=== PATIENT | female | born 1990 | race Two or more races ===

== ENCOUNTER 2017-03-27 08:54 | Outpatient (CLI) | payer MEDICAID ==
[2017-03-27 09:47] LABS: APPEARANCE,URINE SLIGHTLY-CLOUDY; BILIRUBIN,URINE NEGATIVE (NEGATIVE); GLUCOSE, URINE NEGATIVE (NEGATIVE); KETONES,URINE NEGATIVE (NEGATIVE); LEUKOCYTE ESTERASE,URINE LARGE (NEGATIVE); NITRITE,URINE NEGATIVE (NEGATIVE); PROTEIN,URINE NEGATIVE (NEGATIVE); URINE SPECIFIC GRAVITY 1.008; UROBILINOGEN,URINE NEGATIVE mg/dL (<2.0)
[2017-03-27 10:19] LABS: URINE BARBITURATES SCREEN NEGATIVE
--- NOTE | 2017-03-27 10:24 | Non Stress Test Report ---
Non Stress Test Datetime Report Generated by CPN: 03/27/2017 10:24 DEMOGRAPHIC EGA NST: 34.6 INDICATION Indication for Study: Ordered by Provider MONITORING Monitor Explained: Monitor Explained; Test Explained; Patient Verbalized Understanding Time on Monitor: 03/27/2017 09:24 Time off Monitor: 03/27/2017 09:51 NST Duration: 27 NST INTERVENTIONS NST Interventions: PO Hydration; Reposition Patient Physician Notified NST: Dr Hyde BABY A: [id number] BABY A Movement : Present Contraction Frequency : 0 FHR Baseline : 125 Accelerations : 15X15 Decelerations : None Variability : Moderate 6-25bpm NST Review: Meets Criteria for Reactive NST NST Review and Verified By : Michelle Roberson RNC NST Results: Reactive NST REPORT Report Trigger: Send Report
[2017-03-27 11:29] LABS: URINE METHADONE SCREEN NEGATIVE; URINE OPIATES LOW NEGATIVE; URINE PHENCYCLIDINE SCREEN NEGATIVE
== END 2017-03-27 10:09 | disposition left against medical advice (07) ==
LOC: LC 08:54
PROVIDERS: ATTEND Student in an Organized Health Care Education/Training Program
PROC: 4A1HXCZ Monitoring of Products of Conception, Cardiac Rate, External Approach (ICD-10-PCS; principal; 2017-03-27)
DX: Z34.93 Encounter for supervision of normal pregnancy, unspecified, third trimester (principal); Z36 Encounter for antenatal screening of mother; Z3A.34 34 weeks gestation of pregnancy
CPT/HCPCS: 59025; 80307; 81001

== ENCOUNTER 2017-03-29 23:37 | Outpatient (CLI) | payer MEDICAID ==
[2017-03-30 01:01] LABS: APPEARANCE,URINE CLOUDY; BILIRUBIN,URINE NEGATIVE (NEGATIVE); GLUCOSE, URINE NEGATIVE (NEGATIVE); KETONES,URINE NEGATIVE (NEGATIVE); LEUKOCYTE ESTERASE,URINE LARGE (NEGATIVE); NITRITE,URINE NEGATIVE (NEGATIVE); PROTEIN,URINE 30 mg/dL (NEGATIVE); URINE SPECIFIC GRAVITY 1.025; UROBILINOGEN,URINE NEGATIVE mg/dL (<2.0)
[2017-03-30 02:06] LABS: URINE BARBITURATES SCREEN NEGATIVE; URINE METHADONE SCREEN NEGATIVE; URINE OPIATES LOW NEGATIVE; URINE PHENCYCLIDINE SCREEN NEGATIVE
== END 2017-03-30 01:45 | disposition home or self-care (01) ==
LOC: LC 23:37
PROVIDERS: ATTEND Obstetrics & Gynecology
PROC: 4A1HXCZ Monitoring of Products of Conception, Cardiac Rate, External Approach (ICD-10-PCS; principal; 2017-03-29)
DX: O47.03 False labor before 37 completed weeks of gestation, third trimester (principal); Z3A.35 35 weeks gestation of pregnancy
CPT/HCPCS: 59025; 80307; 81005

== ENCOUNTER 2017-04-22 19:06 | Inpatient (IN) | payer MEDICAID ==
--- NOTE | 2017-04-22 19:15 | Non Stress Test Report ---
Non Stress Test Datetime Report Generated by CPN: 04/22/2017 19:14 DEMOGRAPHIC Test Number: 1 EGA NST: 35.2 INDICATION Indication for Study: Ordered by Provider MONITORING Monitor Explained: Monitor Explained; Test Explained; Patient Verbalized Understanding Time on Monitor: 03/30/2017 01:00 Time off Monitor: 03/30/2017 01:35 NST Duration: 35 NST INTERVENTIONS NST Interventions: None Physician Notified NST: Dr Lugo BABY A: [id number] BABY A Movement : Present Contraction Frequency : irregular FHR Baseline : 135 Accelerations : 15X15 Decelerations : None Variability : Moderate 6-25bpm NST Review: Meets Criteria for Reactive NST NST Review and Verified By : B Ortega, RN NST Results: Reactive NST REPORT Report Trigger: Send Report
[2017-04-22 20:05] LABS: APPEARANCE,URINE SLIGHTLY-CLOUDY; BILIRUBIN,URINE NEGATIVE (NEGATIVE); GLUCOSE, URINE NEGATIVE (NEGATIVE); KETONES,URINE NEGATIVE (NEGATIVE); LEUKOCYTE ESTERASE,URINE NEGATIVE (NEGATIVE); NITRITE,URINE NEGATIVE (NEGATIVE); PROTEIN,URINE NEGATIVE (NEGATIVE); URINE SPECIFIC GRAVITY 1.019; UROBILINOGEN,URINE NEGATIVE mg/dL (<2.0)
[2017-04-22 20:26] LABS: URINE BARBITURATES SCREEN NEGATIVE; URINE METHADONE SCREEN NEGATIVE; URINE OPIATES LOW NEGATIVE; URINE PHENCYCLIDINE SCREEN NEGATIVE
[2017-04-22] MEDS ORDERED: RINGERS SOLUTION,LACTATED 1,000 ML IV PRN (21:08)
[2017-04-22] MEDS ORDERED: RINGERS SOLUTION,LACTATED 1,000 ML IV ONE (21:08)
[2017-04-22 21:23] LABS: ABSOLUTE EOSINOPHILS # (AUTO) 0.1 10^3/uL (0.0-0.6); ABSOLUTE LYMPHOCYTES (AUTO) 2.8 10^3/uL (0.5-4.7); ABSOLUTE MONOCYTES (AUTO) 0.9 10^3/uL (0.1-1.4); ABSOLUTE NEUT (AUTO) 7.4 10^3/uL (1.7-8.2); BASOPHILS % (AUTO) 0.3 % (0-2); EOSINOPHILS % (AUTO) 1.1 % (0-6); HEMATOCRIT 38.7 % (36.0-47.0); HEMOGLOBIN 12.9 g/dL (12.0-15.5); LYMPHOCYTES % (AUTO) 25.2 % (13-45); MEAN CORPUSCULAR HEMOGLOBIN 26.4 pg (27.0-33.4); MEAN CORPUSCULAR HGB CONC 33.4 g/dL (32.0-36.0); MEAN CORPUSCULAR VOLUME 79 fl (80-97); MONOCYTES % (AUTO) 7.9 % (3-13); RED BLOOD COUNT 4.88 10^6/uL (3.72-5.28); RED CELL DISTRIBUTION WIDTH 14.8 % (11.5-14.0); SEGMENTED NEUTROPHILS % (AUTO) 65.5 % (42-78); WHITE BLOOD COUNT 11.3 10^3/uL (4.0-10.5)
[2017-04-22] MEDS ORDERED: OXYTOCIN/NORMAL SALINE 20 UNIT/1,000 ML RTUINJ ONE (21:40)
[2017-04-22] MEDS ORDERED: MISOPROSTOL 0.2 MG TABLET ONE (21:40)
[2017-04-22] MEDS ORDERED: LIDOCAINE 1% INJ-PF (10 MG/ML) 30 ML SDV ONE (21:40)
[2017-04-22] MEDS ORDERED: ZOLPIDEM TARTRATE 5 MG TABLET PO PRN (21:59)
[2017-04-22] MEDS ORDERED: BENZOCAINE/MENTHOL AEROSOL SPRAY 56 ML TOP PRN (21:59)
[2017-04-22] MEDS ORDERED: ACETAMINOPHEN WITH CODEINE #3 TABLET PO PRN (21:59)
[2017-04-22] MEDS ORDERED: DIPH/PERTUSS(ACELL)/TETANUS VAC/PF 0.5 ML SYR (>=10YO) IM PRN (21:59)
[2017-04-22] MEDS ORDERED: OXYTOCIN/NORMAL SALINE 20 UNIT/1,000 ML RTUINJ IV PRN (21:59)
[2017-04-22] MEDS ORDERED: DIBUCAINE 1% OINTMENT 28 GM TP PRN (21:59)
[2017-04-22] MEDS ORDERED: MEASLES,MUMPS&RUBELLA VACC/PF 0.5 ML VIAL SUBCUT PRN (21:59)
--- NOTE | 2017-04-23 00:03 | Admission Physical ---
Datetime Report Generated by CPN: 04/23/2017 00:03 CURRENT ADMISSION Hx Assessment: The History has been Reviewed and is Current Chief Complaint: Uterine Contractions Admit Plan: Initiate Labor Protocol ALLERGIES Medication Allergies: Yes Medication Allergies: tramadol/ID (03/30/2017) Medication Allergies: tramadol/ID (03/27/2017) Medication Allergies: tramadol/ID (09/05/2016) Latex: No Latex Allergies OBSTETRICAL HISTORY EDC: 05/02/2017 00:00 : 2 Para: 1 Term: 1 : 0 SAB: 0 IAB: 0 Ectopic: 0 Livin Cesareans: 0 VBACs: 0 Multiple Births: 0 Gestational Diabetes: No Rh Sensitization: No Incompetent Cervix: No SOL: No Infertility: No ART Treatment: No Uterine Anomaly: No IUGR: No Hx Previous C/S: No Macrosomia: No Hx Loss/Stillborn: No PIH: No Hx : No Placenta Previa/Abruption: No Depression/PP Depression: No PTL/PROM: No Post Hemorrhage: No Obstetrical History Comments: G1 2004 baby boy 40 weeks G2 current SEE RECORDS Alcohol: No Marijuana : No Cocaine: No Other Illicit Drugs: No Cigarettes: Never Smoker. [id number] MEDICAL HISTORY Diabetes: No Blood Transfusion: No Pulmonary Disease (Asthma, TB): No Breast Disease: No Hypertension: No Hotel Operation Manager Surgery: No Heart Disease: No Hosp/Surgery: No Autoimmune Disorder: No Anesthetic Complications: No Kidney Disease: No Abnormal Pap Smear: No Neuro/Epilepsy: No Psychiatric Disorders: No Other Medical Diseases: No Hepatitis/Liver Disease: No Significant Family History: No Varicosities/Phlebitis: No Trauma/Violence : No Thyroid Dysfunction: No INFECTIOUS HISTORY Gonorrhea: No Genital Herpes: No Chlamydia: No Tuberculosis: No Syphilis: No Hepatitis: No HIV/AIDS Exposure: No Rash or Viral Illness: No HPV: No PHYSICAL EXAM General: Normal HEENT: Normal Neurologic: Normal Thyroid: Normal Heart: Normal Lungs: Normal Breast: Normal Back: Normal Abdomen: Normal Genitourinary Exam: Normal Extremities: Normal DTRs: Normal Pelvic Type: Adequate Physical Exam Comments: efw 9 pounds FETUS A EGA: 38.4 Monitoring: External US FHR Category: Category I Admit Comment: Term labor-admit, epidural per pt request, expectant management PLANS FOR LABOR AND DELIVERY Labor and Delivery: None Pain Management: None Feeding Preference: Breast Benefit of Breast Feed Discussed: Yes Circumcision: N/A INFORMED CONSENT Signature: with User ID: [email or web address]
[2017-04-23] MEDS: ACETAMINOPHEN WITH CODEINE #3 TABLET PO PRN ×3 (00:28→18:40)
[2017-04-23] MEDS: IBUPROFEN 800 MG TABLET PO SCH ×4 (00:47→21:23)
[2017-04-23 06:52] LABS: HEMATOCRIT 37.9 % (36.0-47.0); HEMOGLOBIN 12.5 g/dL (12.0-15.5); HGB HCT DIFFERENCE -0.4; MEAN CORPUSCULAR HEMOGLOBIN 26.4 pg (27.0-33.4); MEAN CORPUSCULAR VOLUME 80 fl (80-97); RED BLOOD COUNT 4.74 10^6/uL (3.72-5.28); RED CELL DISTRIBUTION WIDTH 15.2 % (11.5-14.0); WHITE BLOOD COUNT 15.3 10^3/uL (4.0-10.5)
[2017-04-23] MEDS: FERROUS SULFATE 325 MG TABLET PO SCH ×2 (08:11→18:40)
[2017-04-23] MEDS: SENNOSIDES/DOCUSATE 8.6-50 MG 1 EACH TABLET PO SCH (08:11)
[2017-04-23] MEDS: DOCUSATE SODIUM 100 MG CAPSULE PO SCH ×2 (08:11→18:40)
[2017-04-23] MEDS: PRENATAL VITAMIN W-O CA NO5/FE FUMARATE/FA CAPSULE PO SCH (08:12)
--- NOTE | 2017-04-23 10:14 | Delivery Summary ---
Del Sum A-C Datetime Report Generated by CPN: 04/23/2017 10:14 DELIVERY PERSONNEL DELIVERY PERSONNEL: [phone];[phone] DELIVERY PERSONNEL: [phone] DELIVERY PERSONNEL: [phone] Delivery Doctor:: Reema Costello MD Labor and Delivery Nurse:: Tricia Dorsey RN Labor and Delivery Nurse:: JOSIAS Hill/ELEVATOR ERECTOR: Liz Temple, ST MATERNAL INFORMATION Delivery Anesthesia: Local Medications After Delivery: Pitocin Bolus-Please Comment; Pitocin Drip 20 Units/1000ml NSS Estimated Blood Loss (ml): 200 Maternal Complications: Precipitous Labor (<3hrs) Provider Comments: Pt progressed to complete and pushing. Head delivered OP. Shoulders and body delivered easily. Cord clamped and cut. Placenta spont and intact. Female infant with apgars 9 and 9. Mom and baby doiong well. LABOR SUMMARY EDC: 05/02/2017 00:00 No. Babies in Womb: 1 Attempted: No Labor Anesthesia: None LABOR INFORMATION Reason for Induction: Not Applicable Onset of Labor: 04/22/2017 21:20 Complete Dilatation: 04/22/2017 21:37 Oxytocin: N/A Group B Beta Strep: Negative Antibiotics # of Doses: 0 Steroids Given: None Reason Steroids Not Administered: Not Applicable MEMBRANES Membranes Rupture Method: Spontaneous Membranes Rupture Method: Spontaneous Rupture of Membranes: 04/22/2017 21:20 Length of Rupture (hr): 0.43 Amniotic Fluid Color: Clear Amniotic Fluid Color: Clear Amniotic Fluid Amount: Small Amniotic Fluid Odor: Normal STAGES OF LABOR Stage 1 hr: 0 Stage 1 min: 17 Stage 2 hr: 0 Stage 2 min: 9 Stage 3 hr: 0 Stage 3 min: 4 Total Time in Labor hr: 0 Total Time in Labor min: 30 VAGINAL DELIVERY Laceration Extension: First Degree Laceration Type: Perineal Laceration Repair: Yes Laceration Repair Note: with sigle stitch of 2-0 chromic using 1 percent lidocaine for local anaesthesia. Sponge Count Correct: N/A Sharps Count Correct: Yes CSECTION DELIVERY Primary Indication: N/A Secondary Indication: N/A CSection Incidence: N/A Labor: N/A Elective: N/A CSection Incision: N/A BABY A INFORMATION Infant Delivery Date/Time: 04/22/2017 21:46 Method of Delivery: Vaginal Born in Route : No : N/A Forceps: N/A Forceps: N/A Vacuum Extraction: N/A Vacuum Extraction: N/A Shoulder Dystocia : No Shoulder Dystocia : No PRESENTATION/POSITION BABY A Presentation: Cephalic Presentation: Cephalic Cephalic Presentation: Vertex Vertex Position: Left Occipital Posterior Breech Presentation: N/A PLACENTA INFORMATION BABY A Placenta Delivery Time : 04/22/2017 21:50 Placenta Method of Delivery: Spontaneous Placenta Status: Delivered SCORES BABY A Heart Rate 1 min: >100 bpm Resp Effort 1 min: Good Cry Reflex Irritability 1 min: Cough or Sneeze or Pulls Away Muscle Tone 1 min: Active Motion Color 1 min: Body [place], Extremities Blue Resuscitation Effort 1 min: Tactile Stimulation SCORE 1 MIN: 9 Heart Rate 5 min: >100 bpm Resp Effort 5 min: Good Cry Reflex Irritability 5 min: Cough or Sneeze or Pulls Away Muscle Tone 5 min: Active Motion Color 5 min: Body [place], Extremities Blue Resuscitation Effort 5 min: Tactile Stimulation SCORE 5 MIN: 9 INFORMATION BABY A Gestational Age at Delivery: 38.4 Gestational Status: Early Term- 37- 38.6 Weeks Outcome : Liveborn Infant Outcome : Liveborn Condition : Stable Sex: Female IDENTIFICATION BABY A Verification Date/Time: 04/22/2017 22:08 ID Band Number: [id number] Mother's Name Verified: Yes Infant RN Verifying : SNaveen Woo, RN Additional Verifying Personnel: Sabina Anthony, WEIGHT/LENGTH BABY A Birthweight (gm): 3415 Infant Weight (lb): 7 Infant Weight (oz): 8 Infant Length (in): 20.25 Infant Length (cm): 51.44 CORD INFORMATION BABY A No. Cord Vessels: 3 Nuchal Cord : N/A Nuchal Cord : N/A Cord Blood Taken: Yes-For Storage (Mom's Blood type +) Suction: Mouth; Nose ASSESSMENT BABY A Infant Complications: None Physical Findings at Delivery: Within Normal Limits Infant Respirations: Appears Normal Skin to Skin: Yes Skin to Skin: Yes Skin to Skin: Yes Skin to Skin Time (min): 45 Apprentice Photographer/ALS Called : No Care By: Lauren ShahJOSIAS ortiz Transferred To: Remains with Mother BABY B INFORMATION : N/A SIGNATURES Signature: with User ID: [email or web address]
--- NOTE | 2017-04-23 11:17 | PDOC PROGRESS REPORT ---
Subjective-OB Subjective: Post Delivery Day: 1 26 year old. Denies any needs at this time, voiding without difficulty, lochia is stable, pain well controlled. Physical Exam (OB) Vital Signs: Temp Pulse Resp BP Pulse Ox 97.6 F 77 20 116/63 100 04/23/17 08:30 04/23/17 08:30 04/23/17 08:30 04/23/17 08:30 04/23/17 08:30 Intake & Output 04/22/17 04/23/17 04/24/17 06:59 06:59 06:59 Weight 134.65 kg - Lochia Lochia Amount: Small 10-25 ml Lochia Color: Rubra/Red - Abdomen Description: Soft, Round Hernia Present: No Fundal Description: Firm, Midline Fundal Height: u/u - u/2 Objective-Diagnostic Laboratory: 04/23/17 06:41 04/22/17 04/22/17 04/22/17 19:32 21:08 21:08 WBC 11.3 H RBC 4.88 Hgb 12.9 Hct 38.7 MCV 79 L MCH 26.4 L MCHC 33.4 RDW 14.8 H Plt Count 293 Seg Neutrophils % 65.5 Lymphocytes % 25.2 Monocytes % 7.9 Eosinophils % 1.1 Basophils % 0.3 Absolute Neutrophils 7.4 Absolute Lymphocytes 2.8 Absolute Monocytes 0.9 Absolute Eosinophils 0.1 Absolute Basophils 0.0 Urine Color YELLOW Urine Appearance SLIGHTLY-CLOUDY Urine pH 6.0 Ur Specific [place] 1.019 Urine Protein NEGATIVE Urine Glucose (UA) NEGATIVE Urine Ketones NEGATIVE Urine Blood NEGATIVE Urine Nitrite NEGATIVE Ur Leukocyte Esterase NEGATIVE Blood Type A POSITIVE Antibody Screen NEGATIVE 04/23/17 06:41 WBC 15.3 H RBC 4.74 Hgb 12.5 Hct 37.9 MCV 80 MCH 26.4 L MCHC 33.0 RDW 15.2 H Plt Count 305 Seg Neutrophils % Lymphocytes % Monocytes % Eosinophils % Basophils % Absolute Neutrophils Absolute Lymphocytes Absolute Monocytes Absolute Eosinophils Absolute Basophils Urine Color Urine Appearance Urine pH Ur Specific [place] Urine Protein Urine Glucose (UA) Urine Ketones Urine Blood Urine Nitrite Ur Leukocyte Esterase Blood Type Antibody Screen Assessment and Plan(PN) - Assessment and Plan (1) Delivery normal Is this a current diagnosis for this admission?: YesPlan: routine pp care - Time Spent with Patient Time with patient: Less than 15 minutes Critical Time spent with patient: Less than 15 minutes Smoking Education Provided: Over 3 minutes Medications reviewed and adjusted accordingly: Yes - Disposition Anticipated Discharge: Home Within: within 24 hours
[2017-04-24] MEDS: ACETAMINOPHEN WITH CODEINE #3 TABLET PO PRN ×2 (03:26→09:16)
[2017-04-24] MEDS: IBUPROFEN 800 MG TABLET PO SCH ×2 (05:34→13:14)
[2017-04-24 08:52] VITALS: BP 117/54
[2017-04-24] MEDS: PRENATAL VITAMIN W-O CA NO5/FE FUMARATE/FA CAPSULE PO SCH (09:17)
[2017-04-24] MEDS: FERROUS SULFATE 325 MG TABLET PO SCH (09:17)
[2017-04-24] MEDS: SENNOSIDES/DOCUSATE 8.6-50 MG 1 EACH TABLET PO SCH (09:17)
[2017-04-24] MEDS: DOCUSATE SODIUM 100 MG CAPSULE PO SCH (09:17)
--- NOTE | 2017-04-24 10:46 | PDOC DISCHARGE SUMMARY ---
Final Diagnosis Discharge Date: 04/24/17 - Final Diagnosis (1) Delivery normal Is this a current diagnosis for this admission?: Yes Discharge Data - Discharge Medication Home Medications: Pnv with Ca,No.72/Iron/FA [Pnv Plus Multivit Tab] 1 tab PO DAILY Reason(s) for Admission: Onset of Labor Procedures: None Intrapartum Procedure(s): Spontaneous Vaginal Delivery Complication(s): Laceration-Labial Laceration-Degree: 1st - Diagnosis Test Laboratory: Temp Pulse Resp BP Pulse Ox 98.0 F 74 16 117/54 L 100 04/24/17 08:08 04/24/17 08:08 04/24/17 08:08 04/24/17 08:08 04/24/17 08:08 04/22/17 04/22/17 04/23/17 19:32 21:08 06:41 RBC 4.88 4.74 Hgb 12.9 12.5 Hct 38.7 37.9 Urine Opiates Screen NEGATIVE - Discharge information/Instructions Discharge Activity: Activity As Tolerated Discharge Diet: Regular Disposition: HOME, SELF-CARE Follow up with: [facility] in: 4
== END 2017-04-24 14:45 | disposition home or self-care (01) | DRG 775 ==
LOC: LC 19:06 → LR 21:00 → 2S 04-23 00:02
PROVIDERS: ADMIT Specialist; ATTEND Specialist
PROC: 10E0XZZ Delivery of Products of Conception, External Approach (ICD-10-PCS; principal; 2017-04-22)
PROC: 0HQ9XZZ Repair Perineum Skin, External Approach (ICD-10-PCS; 2017-04-22)
DX: O62.3 Precipitate labor (principal); Z68.42 Body mass index [BMI] 45.0-49.9, adult; O99.214 Obesity complicating childbirth; E66.9 Obesity, unspecified; O70.0 First degree perineal laceration during delivery; Z3A.38 38 weeks gestation of pregnancy; Z37.0 Single live birth
CPT/HCPCS: 36415; 59025; 80307; 81005; 85025; 85027; 86592; 86850; 86900; 86901; J2590; J3490

== ENCOUNTER 2017-08-02 20:38 | Emergency (ER) | payer MEDICAID ==
[2017-08-02 20:47] VITALS: BP 132/75
[2017-08-02] MEDS ORDERED: LIDOCAINE 2% JELLY 5 ML TUBE TOP ONE (22:15)
--- NOTE | 2017-08-02 22:18 | ER Document Report ---
ED General - General Chief Complaint: Abscess Stated Complaint: HOLE ON ARM Time Seen by Provider: 08/02/17 21:56 Notes: Patient is a 26-year-old female with a past medical history of morbid obesity and hidradenitis who presents with concerns of a "hole in my right arm". Patient reports that she had an abscess on her right proximal inner arm that has opened and drained leaving a hole in her skin. Reports a history of similar symptoms in the past secondary to her hidradenitis. She normally follows with dermatology but they did not have an appointment until September. She does note that the area has a dull, constant, burning pain. Touching area worsens the pain. Nothing improves the pain. She denies any fever or constitutional symptoms. TRAVEL OUTSIDE OF THE [place] IN LAST 30 DAYS: No - Related Data Allergies/Adverse Reactions: tramadol Allergy (Mild, Verified 08/02/17 20:43) Past Medical History - General Information source: Patient - Social History Smoking Status: Never Smoker Frequency of alcohol use: None Drug Abuse: None Lives with: Spouse/Significant other Family History: Reviewed & Not Pertinent Renal/ Medical History: Denies: Hx Peritoneal Dialysis - Immunizations Hx Diphtheria, Pertussis, Tetanus Vaccination: No Review of Systems - Review of Systems Notes: Constitutional: Negative for fever. HENT: Negative for sore throat. Eyes: Negative for visual changes. Cardiovascular: Negative for chest pain. Respiratory: Negative for shortness of breath. Gastrointestinal: Negative for abdominal pain, vomiting or diarrhea. Genitourinary: Negative for dysuria. Musculoskeletal: Negative for back pain. Skin: Positive for rash. Neurological: Negative for headaches, weakness or numbness. 10 point ROS negative except as marked above and in HPI. Physical Exam - Vital signs Vitals: Temp Pulse Resp BP Pulse Ox 98.8 F 85 16 132/75 H 99 08/02/17 20:44 08/02/17 20:44 08/02/17 20:44 08/02/17 20:44 08/02/17 20:44 Interpretation: Normal Notes: PHYSICAL EXAMINATION: GENERAL: Well-appearing, well-nourished and in no acute distress. HEAD: Atraumatic, normocephalic. EYES: Pupils equal round and reactive to light, extraocular movements intact, sclera anicteric, conjunctiva are normal. ENT: nares patent, oropharynx clear without exudates. Moist mucous membranes. NECK: Normal range of motion, supple without lymphadenopathy LUNGS: Breath sounds clear to auscultation bilaterally and equal. No wheezes rales or rhonchi. HEART: Regular rate and rhythm without murmurs ABDOMEN: Soft, nontender, normoactive bowel sounds. No guarding, no rebound. No masses appreciated. EXTREMITIES: Normal range of motion, no pitting or edema. No cyanosis. NEUROLOGICAL: No focal neurological deficits. Moves all extremities spontaneously and on command. PSYCH: Normal mood, normal affect. SKIN: Warm, Dry, normal turgor, there is a 0.5 x 0.5 hole exposing subcutaneous fat on the proximal right inner arm with a surrounding area of erythema consistent with an area that has opened and drained. Multiple small areas of induration in the bilateral axilla Course - Re-evaluation Re-evalutation: 08/02/17 22:16 Patient with a history of hidradenitis presents with an abscess that has already opened and drained on her right proximal inner arm. There is a mild amount of surrounding erythema consistent with an associated cellulitis likely staph in origin. Patient will be started on trimethoprim sulfamethoxazole and has been encouraged to follow-up with her picture enlarger as scheduled. She is otherwise very well in appearance, vitals within normal limits, she does not meet sepsis criteria. No indication for labs or admission. At this time will discharge with return precautions and follow-up recommendations. Verbal discharge instructions given a the bedside and opportunity for questions given. Medication warnings reviewed. Patient is in agreement with this plan and has verbalized understanding of return precautions and the need for primary care follow-up in the next 24-72 hours. - Vital Signs Vital signs: Temp Pulse Resp BP Pulse Ox 98.8 F 85 16 132/75 H 99 08/02/17 20:44 08/02/17 20:44 08/02/17 20:44 08/02/17 20:44 08/02/17 20:44 Discharge - Discharge Clinical Impression: Hidradenitis axillaris, Abscess Condition: Good Disposition: HOME, SELF-CARE Additional Instructions: You were seen for an abscess that has opened. Please clean this area with soap and water twice daily and apply a topical antibiotic. Dress the area after each cleaning. Please return if you develop fever, vomiting, the pain at the site worsens, you notice spreading redness from the area, or you have any other symptoms that are concerning to you. Prescriptions: Sulfamethoxazole/Trimethoprim [Bactrim Ds Tablet] 2 tab PO BID #20 tablet
== END 2017-08-02 23:45 | disposition home or self-care (01) ==
LOC: ER 20:38
DX: L73.2 Hidradenitis suppurativa (principal); L02.413 Cutaneous abscess of right upper limb; E66.01 Morbid (severe) obesity due to excess calories
CPT/HCPCS: 99283

== ENCOUNTER 2018-03-05 06:41 | Day surgery (SDC) | payer MEDICAID ==
[2018-02-26 10:22] LABS: HEMATOCRIT 35.3 % (36.0-47.0); MEAN CORPUSCULAR HEMOGLOBIN 25.6 pg (27.0-33.4); MEAN CORPUSCULAR VOLUME 75 fl (80-97); PLATELET COUNT 344 10^3/uL (150-450); RED BLOOD COUNT 4.67 10^6/uL (3.72-5.28); RED CELL DISTRIBUTION WIDTH 15.8 % (11.5-14.0); WHITE BLOOD COUNT 9.1 10^3/uL (4.0-10.5)
[2018-02-26 10:59] LABS: ANION GAP 8 (5-19); BLOOD UREA NITROGEN 7 mg/dL (7-20); CALCIUM 9.4 mg/dL (8.4-10.2); CARBON DIOXIDE 27 mmol/L (22-30); CHLORIDE 105 mmol/L (98-107); GLUCOSE 98 mg/dL (75-110); POTASSIUM 4.7 mmol/L (3.6-5.0); SODIUM 140.4 mmol/L (137-145)
[~2018-03-05 06:41] MED LIST: AMPICILLIN SODIUM/SULBACTAM NA 1.5 GM in NORMAL SALINE 50 ML IV PRN; LACTATED RINGERS 1000 ML IV PRN; LIDOCAINE 0.5% INJ-PF (5 MG/ML) 50 ML SDV SUBCUT PRN
[2018-03-05] MEDS ORDERED: MIDAZOLAM 2 MG/2 ML INJ ONE ×2 (07:32→07:33)
[2018-03-05] MEDS ORDERED: FENTANYL CITRATE INJ/PF 100 MCG/2 ML AMPUL ONE (07:32)
[2018-03-05] MEDS ORDERED: PROPOFOL INJ 200 MG/20 ML VIAL IV ONE (07:33)
[2018-03-05] MEDS ORDERED: BACITRACIN INJ 50,000 UNIT VIAL ONE ×2 (07:43→10:05)
[2018-03-05] MEDS ORDERED: BUPIVACAINE HCL 0.25 % INJ/PF (2.5 MG/1 ML) 30 ML VIAL ONE (07:43)
[2018-03-05] MEDS ORDERED: LIDOCAINE 0.5% INJ-PF (5 MG/ML) 50 ML SDV ONE (07:43)
[2018-03-05] MEDS ORDERED: MEPERIDINE HCL/PF INJ 25 MG/1 ML DISP.SYRIN IV PRN ×2 (08:06→11:34)
[2018-03-05] MEDS ORDERED: OXYCODONE-ACETAMINOPHEN 5-325 MG TABLET PO PRN ×3 (08:06→11:34)
[2018-03-05] MEDS ORDERED: DIPHENHYDRAMINE HCL 50 MG/ML VIAL IV PRN ×2 (08:06→11:34)
[2018-03-05] MEDS ORDERED: PROMETHAZINE HCL INJ 25 MG/1 ML VIAL IV PRN ×4 (08:06→11:34)
[2018-03-05] MEDS ORDERED: FENTANYL CITRATE INJ/PF 100 MCG/2 ML AMPUL IV PRN ×6 (08:06→11:34)
[2018-03-05] MEDS ORDERED: HYDROMORPHONE HCL INJ/PF 2 MG/ML AMPULE ONE (09:09)
[2018-03-05] MEDS ORDERED: ACETAMINOPHEN 100 ML IV ONE (09:09)
--- NOTE | 2018-03-05 11:10 | Discharge Summary ---
Discharge Summary (SDC) - Discharge Final Diagnosis: Hidradinitis Suppuritiva Axillaris. Date of Surgery: 03/05/18 Discharge Date: 03/06/18 Condition: Good Treatment or Instructions: Discharge home [after recovery per ASU criteria]. Diet as tolerated, when fully awake advance as tolerated. Activities within moderation encouraged. Follow up in my office by appointment in about [1 week]. Call for appointment. Leave wounds [covered], [keep clean and dry, until office visit in 1 week]. Empty MERCEDEZ drain as needed. Hold of on school/work [until evaluation in office]. Meds per med rec. Prescription for Percocet for Toradol. May shower [in 48 hrs], [try to keep operated area as dry as possible]. Prescriptions: Ketorolac Tromethamine [Toradol 10 mg Tablet] 10 mg PO Q6HP PRN #9 tablet PRN Reason: Oxycodone HCl/Acetaminophen [Percocet 5-325 mg Tablet] 1 tab PO ASDIR PRN #15 tab PRN Reason: Referrals: AYO IRWIN DO [Primary Care Provider] - Discharge Diet: As Tolerated Respiratory Treatments at Home: Deep Breathing/Coughing Discharge Activity: Activity As Tolerated Report the Following to Your Physician Immediately: Shortness of Breath, Unusual Bleeding
[2018-03-05] MEDS: FENTANYL CITRATE INJ/PF 100 MCG/2 ML AMPUL ONE ×2 (11:20→11:35)
[2018-03-05] MEDS ORDERED: MORPHINE SULFATE 10 MG/ML INJ IV PRN (11:41)
[2018-03-05] MEDS ORDERED: DEXAMETHASONE SOD PHOSPHATE INJ 4 MG/1 ML VIAL ONE (13:38)
[2018-03-05] MEDS ORDERED: ONDANSETRON HCL INJ/PF 4 MG/2 ML SDV ONE (13:38)
[2018-03-05] MEDS ORDERED: KETOROLAC TROMETHAMINE 60 MG/2 ML SDV ONE (13:38)
[2018-03-05] MEDS: KETOROLAC TROMETHAMINE 10 MG TABLET PO SCH ×2 (14:33→21:10)
[2018-03-05] MEDS: DEXTROSE 5%-1/2 NORMAL SALINE 1,000 ML IV PRN ×2 (16:32→21:05)
[2018-03-05] MEDS: AMPICILLIN SODIUM/SULBACTAM NA 1.5 GM in NORMAL SALINE 50 ML IV SCH ×2 (17:11→23:05)
[2018-03-05] MEDS ORDERED: DIPHENHYDRAMINE HCL 50 MG/ML VIAL IV ONE (17:30)
[2018-03-05] MEDS ORDERED: AMPICILLIN SOD/SULBACTAM 1.5 GM VIAL IV SCH (18:00)
[2018-03-06] MEDS: AMPICILLIN SODIUM/SULBACTAM NA 1.5 GM in NORMAL SALINE 50 ML IV SCH (05:28)
[2018-03-06] MEDS: KETOROLAC TROMETHAMINE 10 MG TABLET PO SCH (05:29)
--- NOTE | 2018-03-06 08:08 | Operative Report ---
Operative Report DATE OF SURGERY: 03/05/18 PREOPERATIVE DIAGNOSIS: 1. Axillary hidradenitis. Severe, recurrent. POSTOPERATIVE DIAGNOSIS: 1. Axillary hidradenitis. Severe, recurrent. OPERATION: 1. Wide excision of extensive left axillary hidradenitis. 2. Extensive rotation flap into defect. 3. Plastic closure. SURGEON: SERGEY CULLEN HOB GRINDER: None. ANESTHESIA: GA TISSUE REMOVED OR ALTERED: Of indurated, cystic skin with chronic inflammation in the left axilla. Consistent with recurrent severe axillary hidradenitis. Good extirpation accomplished with preservation of every possible bit of normal skin. An area 11 x 6 cm remained after excision. In addition there was a medially placed area, a satellite lesion which was also excised, this was about 2.5 cm across. The defect was closed in a tension-free fashion with the patient 's arm extended at 90. This was accomplished by rotating thick skin and subcutaneous flaps developed from the chest wall and from the upper arm into the defect. Plastic closure was accomplished of the complex defect, again in a tension-free fashion. Cultures were taken of some of the more active cystic areas and sent. The wounds were covered with Acticoat. A drain was left in place. All of the above and other measures were taken to reduce the risk of wound breakdown. Nevertheless this is a significant risk in this patient who has had previous excisions and who has had a very long history of recurrent axillary hidradenitis. COMPLICATIONS: None. ESTIMATED BLOOD LOSS: 20 mL. INTRAOPERATIVE FINDINGS: Of indurated skin with multiple areas of cysts and drainage in the left axilla also hyperpigmentation. Completely consistent with multiple attacks of hidradenitis in various stages of healing. The excised defect was 11 x 6 cm with an additional medially placed 2.5's centimeters area of satellite involvement. Excised in completion and covered in a tension-free fraction fashion with rotation flaps. PROCEDURE: The patient was taken to the operating room and positioned supine. She was anesthetized and intubated. The left axilla and left upper extremity were prepared with chlorhexidine and draped out with sterile linen. The arm was positioned at approximately 90 to the patient. Free draped. A roll placed beneath the shoulder to keep the axilla off the bed. After the universal timeout, in which it was verified that the patient received IV antibiotic, broad based multiple organisms, and that the correct site was being operated on, the procedure commenced. The involved left axillary skin was noted and marked. This was somewhat asymmetric so as to include all of the involved skin. Local anesthesia was infiltrated in the skin and subcutaneous tissues around and beneath the involved area. The incision now commenced at the inferior aspect so as to incise the skin border in a V-shaped. This was now grasped with a Tano clamp. The Tano clamp was placed on traction and dissection proceeded piecemeal on either side and beneath the skin flaps. In this way the diseased tissue was excised with a minimum of blood loss. It was submitted for pathology. A medially placed satellite lesion was also excised. The specimen was handed off the field and the gloves were changed, the wound irrigated. This is in an effort to avoid contaminating the fresh wound. Hemostasis was now secured using electrocautery. Once this was done skin approximation was up attempted. It was noted that there was need for a rotation flap in order to secure tension-free closure. Rakes were now used to elevate skin and a thick flap was now raised medially and then laterally, staying in the deep subcutaneous tissues. This continued for a distance of 4-6 cm on either side. From time to time the closure was tested. At about the 6 cm area, found to be very satisfactory. The medial flap was re-rotated posteriorly and this nicely covered the defect. Hemostasis was again secured. A 15 [place] Bran drain was now inserted through an inferior anterior counterincision. The drain was anchored using 3-0 Prolene. The wound was now closed. First interrupted 3-0 Prolene sutures were placed about 6 cm away from the skin edge, and situated about 2-1/2 cm apart. These were left untied for the time being. Closure was now done using interrupted 3- 0 PDS sutures used to approximate the subcutaneous tissues beneath and across incision. The rotation done to get tissue into the defect. This was done and approximated in a cosmetic fashion. Closure was done to facilitate tension- free results. This involved the rotation as above. It also involves a T- shaped closure inferiorly and in the arm. This is because the disease extended unusually out into the arm. Also a transverse closure of the satellite excision. The skin was now closed using a continuous subcutaneous suture of 4- 0 Monocryl which was reinforced with Steri-Strips over benzoin. Acticoat dressing was now applied and held in place with Steri-Strips. Folded fluffy dressings and ABDs were now placed over the incision and tied in place using the previously placed 2-0 Prolene sutures and the procedure concluded. Consideration given to giving Toradol for optimal pain relief.
[2018-03-06 08:19] VITALS: BP 106/65
[2018-03-06] MEDS ORDERED: NORGESTIMATE ETHINYL ESTRADIOL PO SCH (10:00)
== END 2018-03-06 10:20 | disposition home or self-care (01) ==
LOC: OROUT 06:41 → 2S 12:23 → OROUT 03-06 10:20
PROVIDERS: ATTEND Surgery
DX: L73.2 Hidradenitis suppurativa (principal); Z88.5 Allergy status to narcotic agent
CPT/HCPCS: 36415; 87070; 87205; 85027; 81025; 87075; 80048; 88305 ×2; 14040; J2250; J3490 ×4; J1100; J1200; J1885; J3010; J1170; J0295 ×2; J2405; S0020; J2704; J0131; 1610

== ENCOUNTER 2018-03-28 13:55 | Emergency (ER) | payer MEDICAID ==
--- NOTE | 2018-03-28 14:36 | ER Document Report ---
ED Medical Screen (RME) - General Chief Complaint: Post Surgical Pain Stated Complaint: SUTURES OPENED Time Seen by Provider: 03/28/18 14:12 Notes: Patient had surgery with Dr. Noriega underneath her left arm for hydradenitis several days ago. States that 1 of the surgical incision sites opened up. Draining a lot of pus. Increased redness underneath the arm and on the skin. Fever. Not feeling well. I have greeted and performed a rapid initial assessment of this patient. A comprehensive ED assessment and evaluation of the patient, analysis of test results and completion of the medical decision making process will be conducted by additional ED providers. TRAVEL OUTSIDE OF THE [place] IN LAST 30 DAYS: No - Related Data Allergies/Adverse Reactions: tramadol Allergy (Mild, Verified 03/28/18 13:56) ITCHING Past Medical History - Social History Chew tobacco use (# tins/day): No Frequency of alcohol use: None Drug Abuse: None - Past Medical History Cardiac Medical History: Denies: Hx Coronary Artery Disease, Hx Heart Attack, Hx Hypertension Pulmonary Medical History: Denies: Hx Asthma, Hx Bronchitis, Hx COPD, Hx Pneumonia Neurological Medical History: Denies: Hx Cerebrovascular Accident, Hx Seizures Renal/ Medical History: Denies: Hx Peritoneal Dialysis Musculoskeltal Medical History: Denies Hx Arthritis - Immunizations Hx Diphtheria, Pertussis, Tetanus Vaccination: Yes History of Influenza Vaccine for 07/2017 - 12/2017 Season: No Physical Exam - Vital signs Vitals: Temp Pulse Resp BP Pulse Ox 99.1 F 76 20 127/68 H 99 03/28/18 14:18 03/28/18 14:18 03/28/18 14:18 03/28/18 14:18 03/28/18 14:18 - Extremities General upper extremity: Other - There is a small opening in a few spots underneath the left armpit. There is lymphangitic streaking and redness extending to the left lateral chest wall and armpit area there is no significant amount of drainage General lower extremity: No: Kristine's sign Course - Vital Signs Vital signs: Temp Pulse Resp BP Pulse Ox 98.2 F 75 16 114/66 98 03/28/18 16:43 03/28/18 16:43 03/28/18 16:43 03/28/18 16:43 03/28/18 16:43 - Laboratory Result Diagrams: 03/28/18 15:35 03/28/18 15:35 Laboratory results interpreted by me: 03/28/18 03/28/18 15:35 15:35 MCV 76 L MCH 25.6 L RDW 16.0 H C-Reactive Protein 12.8 H Doctor's Discharge - Discharge Clinical Impression: Wound infection Condition: Stable Disposition: HOME, SELF-CARE Additional Instructions: Continue Hibiclens washes daily. Take antibiotics as prescribed. Take pain medicine as needed. Follow-up with Dr. Noriega as planned on Friday. Return to the emergency room for any concerns at redness is spreading, pus drainage, fever (temperature greater than 100.4) or concerns or getting worse. The pain medicine you're taking prescribed as a narcotic. There are several important things you should know about this medicine: 1. This medicine contains Tylenol: It is important that you do not take Tylenol (or acetaminophen) while on this medicine. Tylenol is metabolized by the liver and taking too much Tylenol (acetaminophen) can lay to liver damage and even liver failure. 2. Taking narcotics for too long can lead to physical and mental dependence. Take this medicine only if really needed and in the lowest quantity to achieve pain relief. 3. Do not drink alcohol while on this medicine. Alcohol interacts with narcotics and the combination can be dangerous. 4. Do not drive or operate machinery while on this medicine. 5. Narcotics do cause constipation, so drink plenty of fluids and daily stool softeners. Prescriptions: Cephalexin Monohydrate [Keflex 500 mg Capsule] 500 mg PO Q6H 7 Days #28 capsule Oxycodone HCl/Acetaminophen [Percocet 5-325 mg Tablet] 1 - 2 tab PO ASDIR PRN # 15 tablet PRN Reason: Sulfamethoxazole/Trimethoprim [Bactrim Ds Tablet] 1 each PO BID #14 tablet Forms: Return to Work Referrals: JENNIFER CUMMINS PA-C [ALLIED HEALTH PROFESSIONAL] - Follow up as needed SERGEY NORIEGA MD [ACTIVE STAFF] - 04/01/18
[2018-03-28 15:51] LABS: ABSOLUTE BASOPHILS # (AUTO) 0.1 10^3/uL (0.0-0.2); ABSOLUTE EOSINOPHILS # (AUTO) 0.2 10^3/uL (0.0-0.6); ABSOLUTE LYMPHOCYTES (AUTO) 2.7 10^3/uL (0.5-4.7); ABSOLUTE MONOCYTES (AUTO) 0.6 10^3/uL (0.1-1.4); ABSOLUTE NEUT (AUTO) 5.4 10^3/uL (1.7-8.2); BASOPHILS % (AUTO) 0.8 % (0-2); HEMATOCRIT 37.2 % (36.0-47.0); HEMOGLOBIN 12.6 g/dL (12.0-15.5); LYMPHOCYTES % (AUTO) 30.2 % (13-45); MEAN CORPUSCULAR HEMOGLOBIN 25.6 pg (27.0-33.4); MEAN CORPUSCULAR HGB CONC 33.8 g/dL (32.0-36.0); MEAN CORPUSCULAR VOLUME 76 fl (80-97); MONOCYTES % (AUTO) 6.3 % (3-13); PLATELET COUNT 393 10^3/uL (150-450); RED BLOOD COUNT 4.92 10^6/uL (3.72-5.28); SEGMENTED NEUTROPHILS % (AUTO) 60.7 % (42-78); TOTAL CELLS COUNTED % (AUTO) 100 %; WHITE BLOOD COUNT 8.9 10^3/uL (4.0-10.5)
[2018-03-28 16:09] LABS: ALANINE AMINOTRANSFERASE 11 U/L (9-52); ALBUMIN 3.9 g/dL (3.5-5.0); ALKALINE PHOSPHATASE 72 U/L (38-126); ANION GAP 7 (5-19); ASPARTATE AMINO TRANSFERASE 30 U/L (14-36); BILIRUBIN,DIRECT 0.3 mg/dL (0.0-0.4); BILIRUBIN,TOTAL 0.3 mg/dL (0.2-1.3); BLOOD UREA NITROGEN 7 mg/dL (7-20); CALCIUM 9.5 mg/dL (8.4-10.2); CARBON DIOXIDE 28 mmol/L (22-30); CHLORIDE 107 mmol/L (98-107); GLUCOSE 84 mg/dL (75-110); POTASSIUM 4.2 mmol/L (3.6-5.0); TOTAL PROTEIN 8.2 g/dL (6.3-8.2)
--- NOTE | 2018-03-28 16:29 | ER Document Report ---
ED General - General Chief Complaint: Post Surgical Pain Stated Complaint: SUTURES OPENED Time Seen by Provider: 03/28/18 14:12 Mode of Arrival: Ambulatory Information source: Patient Notes: This is a 27-year-old female with a history of hidradenitis suppurativa status post left axillary resection who presents with a wound dehiscence. Patient denies fever. She states it is a little reddened underneath the wound has been some discharge. She states that she is having some pain in that area because it such as sensitive location. TRAVEL OUTSIDE OF THE [place] IN LAST 30 DAYS: No - HPI Onset: Last week Onset/Duration: Gradual Quality of pain: Dull Severity: Moderate Pain Level: 2 Associated symptoms: denies: Chest pain, Fever, Shortness of breath Exacerbated by: Movement Relieved by: Remaining still Similar symptoms previously: Yes Recently seen / treated by doctor: Yes - Related Data Allergies/Adverse Reactions: tramadol Allergy (Mild, Verified 03/28/18 13:56) ITCHING Past Medical History - General Information source: Patient - Social History Smoking Status: Never Smoker Cigarette use (# per day): No Chew tobacco use (# tins/day): No Frequency of alcohol use: None Drug Abuse: None Lives with: Family Family History: Reviewed & Not Pertinent Patient has suicidal ideation: No Patient has homicidal ideation: No - Past Medical History Cardiac Medical History: Denies: Hx Coronary Artery Disease, Hx Heart Attack, Hx Hypertension Pulmonary Medical History: Denies: Hx Asthma, Hx Bronchitis, Hx COPD, Hx Pneumonia Neurological Medical History: Denies: Hx Cerebrovascular Accident, Hx Seizures Renal/ Medical History: Denies: Hx Peritoneal Dialysis Musculoskeltal Medical History: Denies Hx Arthritis Past Surgical History: Reports: Other - Section the hidradenitis suppurativa - Immunizations Hx Diphtheria, Pertussis, Tetanus Vaccination: Yes Review of Systems - Review of Systems Constitutional: denies: Chills, Fever EENT: No symptoms reported Cardiovascular: No symptoms reported Respiratory: No symptoms reported Gastrointestinal: No symptoms reported Genitourinary: No symptoms reported Female Genitourinary: No symptoms reported Musculoskeletal: No symptoms reported Skin: See HPI Hematologic/Lymphatic: No symptoms reported Neurological/Psychological: No symptoms reported Physical Exam - Vital signs Vitals: Temp Pulse Resp BP Pulse Ox 99.1 F 76 20 127/68 H 99 03/28/18 14:18 03/28/18 14:18 03/28/18 14:18 03/28/18 14:18 03/28/18 14:18 Notes: Physical exam: GENERAL: This is a 27-year-old male who is alert and oriented 3, oriented, no acute distress, she does appear comfortable. HEAD: Atraumatic, normocephalic. EYES: Pupils equal round and reactive to light, extraocular movements intact, sclera anicteric, conjunctiva are normal. ENT: Moist mucous membranes. NECK: Normal range of motion, supple without obvious mass or JVD. LUNGS: Breath sounds clear to auscultation bilaterally and equal. No wheezes rales or rhonchi. HEART: Regular rate and rhythm without murmurs, rubs or gallops. ABDOMEN: Soft, normoactive bowel sounds. No tenderness to palpation. No guarding, no rebound. No masses appreciated. EXTREMITIES: Left axilla shows OpSite. There is some dehiscence in the axilla about 2-3 inches. There is no pus or foul smell. There is mild erythema under the wound site. There is no pus or necrotic tissue about the wound site and it looks pretty good. NEUROLOGICAL: Cranial nerves II through XII grossly intact. Normal speech, moving all extremities. PSYCH: Normal mood, normal affect. SKIN: Warm, Dry, normal turgor, no rashes or lesions noted. Course - Re-evaluation Re-evalutation: 03/28/18 16:32 I have had a discussion with the patient. She does state it is a little bit more red and it is unclear at this time whether this is fungal or bacterial. We will treat (given past wound cultures) with Bactrim and Keflex and she has an appointment on Friday (April 01) with Dr. Noriega. Note: The patient is nontoxic-appearing. Her CRP is elevated but she has had recent surgery. The white count is normal and she is afebrile. Wound site itself has no devitalized tissue or obvious pus drainage. There is no fluctuance around the wound to suggest a pocket of pus. 03/28/18 16:35 - Vital Signs Vital signs: Temp Pulse Resp BP Pulse Ox 98.2 F 75 16 114/66 98 03/28/18 16:43 03/28/18 16:43 03/28/18 16:43 03/28/18 16:43 03/28/18 16:43 - Laboratory Result Diagrams: 03/28/18 15:35 03/28/18 15:35 Laboratory results interpreted by me: 03/28/18 03/28/18 15:35 15:35 MCV 76 L MCH 25.6 L RDW 16.0 H C-Reactive Protein 12.8 H Discharge - Discharge Clinical Impression: Wound infection Condition: Stable Disposition: HOME, SELF-CARE Additional Instructions: Continue Hibiclens washes daily. Take antibiotics as prescribed. Take pain medicine as needed. Follow-up with Dr. Noriega as planned on Friday. Return to the emergency room for any concerns at redness is spreading, pus drainage, fever (temperature greater than 100.4) or concerns or getting worse. The pain medicine you're taking prescribed as a narcotic. There are several important things you should know about this medicine: 1. This medicine contains Tylenol: It is important that you do not take Tylenol (or acetaminophen) while on this medicine. Tylenol is metabolized by the liver and taking too much Tylenol (acetaminophen) can lay to liver damage and even liver failure. 2. Taking narcotics for too long can lead to physical and mental dependence. Take this medicine only if really needed and in the lowest quantity to achieve pain relief. 3. Do not drink alcohol while on this medicine. Alcohol interacts with narcotics and the combination can be dangerous. 4. Do not drive or operate machinery while on this medicine. 5. Narcotics do cause constipation, so drink plenty of fluids and daily stool softeners. Prescriptions: Cephalexin Monohydrate [Keflex 500 mg Capsule] 500 mg PO Q6H 7 Days #28 capsule Oxycodone HCl/Acetaminophen [Percocet 5-325 mg Tablet] 1 - 2 tab PO ASDIR PRN # 15 tablet PRN Reason: Sulfamethoxazole/Trimethoprim [Bactrim Ds Tablet] 1 each PO BID #14 tablet Forms: Return to Work Referrals: JENNIFER CUMMINS PA-C [ALLIED HEALTH PROFESSIONAL] - Follow up as needed SERGEY NORIEGA MD [ACTIVE STAFF] - 04/01/18
[2018-03-28 16:53] VITALS: BP 114/66
== END 2018-03-28 16:45 | disposition home or self-care (01) ==
LOC: ER 13:55
DX: T81.4XXA Infection following a procedure, initial encounter (principal); T81.31XA Disruption of external operation (surgical) wound, not elsewhere classified, initial encounter; Y84.8 Other medical procedures as the cause of abnormal reaction of the patient, or of later complication, without mention of misadventure at the time of the procedure; Z88.5 Allergy status to narcotic agent
CPT/HCPCS: 36415; 80053; 85025; 86140; 99283

== ENCOUNTER 2018-07-24 12:55 | Emergency (ER) | payer MEDICAID ==
[2018-07-24 13:17] VITALS: BP 94/52
--- NOTE | 2018-07-24 14:11 | ER Document Report ---
HPI - HPI Patient complains to provider of: Chronic hidradenitis suppurativa Onset: Other - Since teenager Onset/Duration: Persistent Pain Level: 5 Context: 27-year-old female with chronic draining hidradenitis suppurativa groin and under both axilla is concerned about the drainage and the odor. She is seen Shahbaz Noriega in the past for this. She states that they will not do any permanent surgery. She is not taking any antibiotics. No recent culture. Associated Symptoms: None Exacerbated by: Denies Relieved by: Denies Similar symptoms previously: Yes Recently seen / treated by doctor: No - ROS ROS below otherwise negative: Yes Systems Reviewed and Negative: Yes All other systems reviewed and negative - REPRODUCTIVE Reproductive: DENIES: : Past Medical History - General Information source: Patient - Social History Smoking Status: Current Every Day Smoker Lives with: Family Family History: Reviewed & Not Pertinent Renal/ Medical History: Denies: Hx Peritoneal Dialysis Past Surgical History: Reports: Other - I&D and removal of abscesses hidradenitis suppurativa - Immunizations Hx Diphtheria, Pertussis, Tetanus Vaccination: Yes Vertical Provider Document - CONSTITUTIONAL Agree With Documented VS: Yes Exam Limitations: No Limitations General Appearance: No Apparent Distress Notes: Obese - INFECTION CONTROL TRAVEL OUTSIDE OF THE [place] IN LAST 30 DAYS: No - NECK Neck: Supple - RESPIRATORY Respiratory: Breath Sounds Normal, No Respiratory Distress - CARDIOVASCULAR Cardiovascular: Regular Rate, Regular Rhythm - MUSCULOSKELETAL/EXTREMETIES Musculoskeletal/Extremeties: MAEW, FROM, Tender - Bilateral axilla multiple draining areas with no palpable abscesses to drain - NEURO Level of Consciousness: Awake - DERM Notes: Multiple follicular draining lesions quite extensive in the mons pubis Course - Re-evaluation Re-evalutation: 07/24/18 15:00 CT of the abdomen and pelvis was inadvertently done on this patient without contrast. It was supposed to be for another patient, although I am glad that she did have the CT because it does show no abscess collection that can be drained so I feel more comfortable letting her follow-up with the general surgery clinic after she has been on antibiotics pending the wound culture and I did schedule an appointment for August 04 at 9:15 in the morning at the wound care clinic with Dr. Noriega. I had spoken with Dr. Quintero the general surgeon earlier and he recommended treating her with clindamycin pending the wound culture. He also recommends that she goes to the wound care clinic to see Dr. Shahbaz Noriega, since he did her previous incision and drainage on her left axilla. 07/24/18 16:05 Patient wants to go back to work tomorrow. - Vital Signs Vital signs: Temp Pulse Resp BP Pulse Ox 99.1 F 78 18 94/52 L 98 07/24/18 13:16 07/24/18 13:16 07/24/18 13:16 07/24/18 13:16 07/24/18 13:16 - Laboratory Result Diagrams: 07/24/18 14:42 07/24/18 14:42 Discharge - Discharge Clinical Impression: Chronic hidradenitis supperativa, axilla purulent drainage, groin hidrandinitis draining Condition: Good Disposition: HOME, SELF-CARE Instructions: Abscess ([facility]), Clindamycin ([facility]) Additional Instructions: Clindamycin 300 mg 3 times a day Return to the emergency room for any fever increased pain See Dr. Shahbaz Noriega of the wound care clinic [facility] [phone] appointment is august 04, 2018 Call [facility] Friday and try to get appointment sooner than August 04. Shower daily with antibacterial soap that has been provided Prescriptions: Ibuprofen [Motrin 800 mg Tablet] 800 mg PO Q8HP PRN #30 tablet PRN Reason: Clindamycin HCl [Cleocin 150 mg Capsule] 300 mg PO TID #60 capsule Forms: Return to Work Referrals: SERGEY NORIEGA MD [ACTIVE STAFF] - 07/27/18
[2018-07-24 14:50] LABS: ABSOLUTE EOSINOPHILS # (AUTO) 0.1 10^3/uL (0.0-0.6); ABSOLUTE LYMPHOCYTES (AUTO) 2.5 10^3/uL (0.5-4.7); ABSOLUTE MONOCYTES (AUTO) 0.5 10^3/uL (0.1-1.4); ABSOLUTE NEUT (AUTO) 4.4 10^3/uL (1.7-8.2); BASOPHILS % (AUTO) 0.4 % (0-2); EOSINOPHILS % (AUTO) 1.6 % (0-6); HEMATOCRIT 34.4 % (36.0-47.0); HEMOGLOBIN 11.6 g/dL (12.0-15.5); LYMPHOCYTES % (AUTO) 33.1 % (13-45); MEAN CORPUSCULAR HEMOGLOBIN 24.6 pg (27.0-33.4); MEAN CORPUSCULAR HGB CONC 33.6 g/dL (32.0-36.0); MEAN CORPUSCULAR VOLUME 73 fl (80-97); MONOCYTES % (AUTO) 6.6 % (3-13); PLATELET COUNT 360 10^3/uL (150-450); RED CELL DISTRIBUTION WIDTH 17.4 % (11.5-14.0); SEGMENTED NEUTROPHILS % (AUTO) 58.3 % (42-78); TOTAL CELLS COUNTED % (AUTO) 100 %; WHITE BLOOD COUNT 7.5 10^3/uL (4.0-10.5)
[2018-07-24 15:09] LABS: ALANINE AMINOTRANSFERASE 26 U/L (9-52); ALBUMIN 3.5 g/dL (3.5-5.0); ALKALINE PHOSPHATASE 79 U/L (38-126); ANION GAP 8 (5-19); ASPARTATE AMINO TRANSFERASE 26 U/L (14-36); BILIRUBIN,DIRECT 0.1 mg/dL (0.0-0.4); BILIRUBIN,TOTAL 0.4 mg/dL (0.2-1.3); BLOOD UREA NITROGEN 12 mg/dL (7-20); CALCIUM 9.4 mg/dL (8.4-10.2); CARBON DIOXIDE 26 mmol/L (22-30); CHLORIDE 104 mmol/L (98-107); GLUCOSE 90 mg/dL (75-110); POTASSIUM 4.5 mmol/L (3.6-5.0); SODIUM 137.7 mmol/L (137-145); TOTAL PROTEIN 7.8 g/dL (6.3-8.2)
--- NOTE | 2018-07-24 15:25 | RADIOLOGY REPORT (SQ) ---
EXAM DESCRIPTION: CT ABD/PELVIS NO ORAL OR IV COMPLETED DATE/TIME: 07/24/2018 3:01 pm REASON FOR STUDY: PELVIC ABSESS COMPARISON: None. TECHNIQUE: CT scan of the abdomen and pelvis performed without intravenous or oral contrast. Images reviewed with lung, soft tissue, and bone windows. Reconstructed coronal and sagittal MPR images revi ewed. All images stored on PACS. All CT scanners at this facility use dose modulation, iterative reconstruction, and/or weight based d osing when appropriate to reduce radiation dose to as low as reasonably achievable (ALARA). [facility]: Dose Right [facility]: CareDose [facility]: Dose Right [facility]: Teradose 4D [facility]: Smart [employer] RADIATION DOSE: CT Rad equipment meets quality standard of care and radiation dose reduction techniq ues were employed. CTDIvol: 18.9 mGy. DLP: 1198 mGy-cm.mGy. LIMITATIONS: None. FINDINGS: LOWER CHEST: No significant findings. No nodules or infiltrates. NON-CONTRASTED LIVER, SPLEEN, ADRENALS: Evaluation limited by lack of IV contrast. No identified sign ificant masses. PANCREAS: No masses. No peripancreatic inflammatory changes. GALLBLADDER: No identified stones by CT criteria. No inflammatory changes to suggest cholecystitis. RIGHT KIDNEY AND URETER: No suspicious masses. Assessment limited by lack of IV contrast. No signif icant calcifications. No hydronephrosis or hydroureter. LEFT KIDNEY AND URETER: No suspicious masses. Assessment limited by lack of IV contrast. No signifi cant calcifications. No hydronephrosis or hydroureter. AORTA AND RETROPERITONEUM: No aneurysm. No retroperitoneal masses or adenopathy. BOWEL AND PERITONEAL CAVITY: No obvious masses or inflammatory changes. No free fluid. APPENDIX: Normal. PELVIS, BLADDER, AND ABDOMINAL WALL:No pelvic masses. No free fluid. Bladder normal. BONES: No significant findings. OTHER: There is fairly symmetric skin thickening in the perineal region with edematous or inflammator y changes in the underlying subcutaneous fat. This could be related to an edematous, inflammatory, o r infectious process. No discrete abscess collection is identified. There are bilateral enlarged an d borderline enlarged inguinal lymph nodes. There is a focal area of skin thickening in the subcutan eous fat to the left of midline in the lower pelvis which is separate from the peroneal process. Cli nical correlation is recommend. IMPRESSION: NO SIGNIFICANT OR ACUTE intra-abdominal or pelvic abnormalities. There is fairly symmet esequiel skin thickening in the perineal region with edematous or inflammatory changes in the underlying s ubcutaneous fat. Differential possibilities would include an edematous, inflammatory, or infectious process. No discrete abscess collection is identified. There are bilateral enlarged and borderline enlarged inguinal lymph nodes. Clinical correlation is recommended. Other findings as noted above COMMENT: Quality ID # [id number]: Final reports with documentation of one or more dose reduction techniques (e.g., Automated exposure control, adjustment of the mA and/or kV according to patient size, use of iterative reconstruction technique) TECHNICAL DOCUMENTATION: JOB ID: [id number] [employer]- All Rights Reserved Reading location - IP/workstation name: [email or web address]
[2018-07-24] MEDS: CLINDAMYCIN PHOSPHATE INJ 300 MG/2 ML SDV IV ONE ×2 (16:02→16:07)
[2018-07-24] MEDS ORDERED: ACETAMINOPHEN 325 MG TABLET PO ONE (16:05)
[2018-07-24] MEDS ORDERED: IBUPROFEN 800 MG TABLET PO ONE (16:05)
== END 2018-07-24 16:16 | disposition home or self-care (01) ==
LOC: ER 12:55
DX: L73.2 Hidradenitis suppurativa (principal); F17.200 Nicotine dependence, unspecified, uncomplicated
CPT/HCPCS: 36415; 74176; 80053; 85025; 87070; 87077; 87186; 87205; 99284; J3490

== ENCOUNTER 2019-08-27 22:43 | Emergency (ER) | payer SELFPAY ==
[2019-08-28 00:58] LABS: ABSOLUTE EOSINOPHILS # (AUTO) 0.4 10^3/uL (0.0-0.6); ABSOLUTE LYMPHOCYTES (AUTO) 3.6 10^3/uL (0.5-4.7); ABSOLUTE MONOCYTES (AUTO) 0.5 10^3/uL (0.1-1.4); ABSOLUTE NEUT (AUTO) 4.2 10^3/uL (1.7-8.2); BASOPHILS % (AUTO) 0.5 % (0-2); EOSINOPHILS % (AUTO) 4.3 % (0-6); HEMATOCRIT 33.2 % (36.0-47.0); HEMOGLOBIN 10.7 g/dL (12.0-15.5); MEAN CORPUSCULAR HEMOGLOBIN 22.1 pg (27.0-33.4); MEAN CORPUSCULAR HGB CONC 32.3 g/dL (32.0-36.0); MEAN CORPUSCULAR VOLUME 68 fl (80-97); MONOCYTES % (AUTO) 5.5 % (3-13); PLATELET COUNT 382 10^3/uL (150-450); RED BLOOD COUNT 4.84 10^6/uL (3.72-5.28); RED CELL DISTRIBUTION WIDTH 18.8 % (11.5-14.0); SEGMENTED NEUTROPHILS % (AUTO) 48.7 % (42-78); TOTAL CELLS COUNTED % (AUTO) 100 %; WHITE BLOOD COUNT 8.7 10^3/uL (4.0-10.5)
[2019-08-28 01:17] LABS: ALBUMIN 3.8 g/dL (3.5-5.0); ALKALINE PHOSPHATASE 75 U/L (38-126); ANION GAP 9 (5-19); ASPARTATE AMINO TRANSFERASE 19 U/L (14-36); BILIRUBIN,DIRECT 0.1 mg/dL (0.0-0.4); BILIRUBIN,TOTAL 0.1 mg/dL (0.2-1.3); BLOOD UREA NITROGEN 13 mg/dL (7-20); CALCIUM 9.3 mg/dL (8.4-10.2); CARBON DIOXIDE 26 mmol/L (22-30); CHLORIDE 106 mmol/L (98-107); CREATINE KINASE 158 U/L (30-135); GLUCOSE 86 mg/dL (75-110); TOTAL PROTEIN 8.4 g/dL (6.3-8.2)
[2019-08-28 01:31] LABS: TROPONIN I < 0.012 ng/mL
[2019-08-28] MEDS ORDERED: DEXAMETHASONE SOD PHOS INJ 10 MG/1 ML VIAL IV ONE (04:04)
[2019-08-28] MEDS ORDERED: KETOROLAC TROMETHAMINE INJ/PF 30 MG/1 ML SDV IV ONE (04:04)
--- NOTE | 2019-08-28 04:04 | ER Document Report ---
ED General - General Chief Complaint: Chest Pain Stated Complaint: CHEST PAIN,LEFT ARM PAIN Time Seen by Provider: 08/28/19 03:56 Primary Care Provider: TANIKA MONTERO PA-C [Primary Care Provider] - Follow up as needed Mode of Arrival: Ambulatory Information source: Patient Notes: This 28-year-old woman presents to the emergency department with a complaint of intermittent episodes of chest discomfort. She states this symptoms lasted for about 5minutes and is been ongoing for the past 2-1/2 weeks. She is obese and has no known history of hypertension, diabetes or hyperlipidemia. There is no significant family history of CAD. She states that the pain comes as a sudden jolt of pain in left upper chest area that radiates into the left arm. She has had some tingling in the left arm as well. She denies palpitations or associated dizziness or syncope. TRAVEL OUTSIDE OF THE [place] IN LAST 30 DAYS: No - Related Data Allergies/Adverse Reactions: tramadol Allergy (Mild, Verified 07/24/18 12:56) ITCHING Past Medical History - Social History Smoking Status: Current Some Day Smoker Family History: Reviewed & Not Pertinent Patient has suicidal ideation: No Patient has homicidal ideation: No - Past Medical History Cardiac Medical History: Denies: Hx Coronary Artery Disease, Hx Heart Attack, Hx Hypertension Pulmonary Medical History: Denies: Hx Asthma, Hx Bronchitis, Hx COPD, Hx Pneumonia Neurological Medical History: Denies: Hx Cerebrovascular Accident, Hx Seizures Renal/ Medical History: Denies: Hx Peritoneal Dialysis Musculoskeletal Medical History: Denies Hx Arthritis Past Surgical History: Reports: Other - I&D and removal of abscesses hidradenitis suppurativa - Immunizations Hx Diphtheria, Pertussis, Tetanus Vaccination: Yes Review of Systems - Review of Systems Notes: REVIEW OF SYSTEMS GENERAL: Negative for any nausea, vomiting, fevers, chills, or weight loss. NEUROLOGIC: Negative for any blurry vision, blind spots, double vision, facial asymmetry, dysphagia, dysarthria, hemiparesis, hemisensory deficits, vertigo, ataxia. HEENT: Negative for any head trauma, neck trauma, neck stiffness, photophobia, phonophobia, sinusitis, rhinitis. CARDIAC: +chest pain, no dyspnea on exertion, paroxysmal nocturnal dyspnea, peripheral edema. PULMONARY: Negative for any shortness of breath, wheezing, COPD, or TB exposure. GASTROINTESTINAL: Negative for any abdominal pain, nausea, vomiting, bright red blood per rectum, melena. GENITOURINARY: Negative for any dysuria, hematuria, incontinence. INTEGUMENTARY: Negative for any rashes, cuts, insect bites. RHEUMATOLOGIC: Negative for any joint pains, photosensitive rashes, history of vasculitis or kidney problems. HEMATOLOGIC: Negative for any abnormal bruising, frequent infections or bleeding. Physical Exam - Vital signs Vitals: Temp Pulse Resp BP Pulse Ox 98.7 F 81 20 128/67 H 100 08/27/19 22:56 08/27/19 22:56 08/27/19 22:56 08/27/19 22:56 08/27/19 22:56 - Notes Notes: Reviewed vital signs and nursing note as charted by RN. CONSTITUTIONAL: Obese female in no acute distress complaining of 9/10 chest pain HEAD: Normocephalic; atraumatic; No swelling EYES: PERRL; Conjunctivae clear, no drainage; EOMI ENT: External ears without lesions; External auditory canal is patent; TMs without erythema, landmarks clear and well visualized; no rhinorrhea; Pharynx without erythema or lesions, no tonsillar hypertrophy, airway patent, mucous membranes pink and moist NECK: Supple, no cervical lymphadenopathy, no masses CARD: Regular rate and rhythm; no murmurs, no rubs, no gallops, capillary refill < 2 seconds, symmetric pulses, tenderness in the upper pectoralis and left shoulder deltoid region. RESP: Respiratory rate and effort are normal. There is normal chest excursion. No respiratory distress, no retractions, no stridor, no nasal flaring, no accessory muscle use. The lungs are clear to auscultation bilaterally, no wheezing, no rales, no rhonchi. ABD/GI: Normal bowel sounds; non-distended; soft, non-tender, no rebound, no guarding, no palpable organomegaly EXT: Normal ROM in all joints; non-tender to palpation; no effusions, no edema SKIN: Normal color for age and race; warm; dry; good turgor; no acute lesions noted NEURO: No facial asymmetry; Moves all extremities equally; Motor and sensory function intact Course - Re-evaluation Re-evalutation: 08/28/19 04:03 Patient with an atypical chest pain presentation and tenderness to palpation pectoralis and deltoid region. Initial EKG, troponin are negative. A repeat troponin had been ordered and will be awaiting the results. Patient is treated with IV Toradol and Decadron. 08/28/19 05:02 Second troponin is negative and the patient has received the medications. I explained to the patient that this is not her heart and that she could be discharged home, patient has acknowledged an understanding of this plan and is really ready to be discharged. - Vital Signs Vital signs: Temp Pulse Resp BP Pulse Ox 98.7 F 81 22 H 118/76 98 08/27/19 22:56 08/27/19 22:56 08/28/19 03:00 08/28/19 03:00 08/28/19 03:00 - Laboratory Result Diagrams: 08/28/19 00:41 08/28/19 00:41 Laboratory results interpreted by me: 08/28/19 08/28/19 00:41 00:41 Hgb 10.7 L Hct 33.2 L MCV 68 L MCH 22.1 L RDW 18.8 H Total Bilirubin 0.1 L Creatine Kinase 158 H Total Protein 8.4 H 08/28/19 05:03 I have reviewed laboratory data and used this information and the treatment decisions regarding the patient. - EKG Interpretation by Me EKG shows normal: Sinus rhythm, [place], Intervals, QRS Complexes, ST-T Waves Discharge - Discharge Clinical Impression: Non-cardiac chest pain Condition: Good Disposition: HOME, SELF-CARE Instructions: Chest Wall Pain ([facility]) Additional Instructions: At this time will discharge with return precautions and follow-up recommendations. Verbal discharge instructions given a the bedside and opportunity for questions given. Medication warnings reviewed. Patient is in agreement with this plan and has verbalized understanding of return precautions and the need for primary care follow-up in the next 24-72 hours. Referrals: TANIKA MONTERO PA-C [Primary Care Provider] - Follow up as needed
[2019-08-28] MEDS ORDERED: DEXAMETHASONE SOD PHOS INJ 10 MG/1 ML VIAL IM ONE (04:05)
[2019-08-28] MEDS ORDERED: KETOROLAC TROMETHAMINE 60 MG/2 ML SDV IM ONE (04:08)
[2019-08-28 05:14] VITALS: BP 107/58
--- NOTE | 2019-08-28 11:35 | EKG REPORT ---
SEVERITY:- NORMAL ECG - SINUS RHYTHM : Confirmed by: Bev Granado MD 28-Aug-2019 11:35:18
== END 2019-08-28 05:23 | disposition home or self-care (01) ==
LOC: ER 22:43
DX: R07.89 Other chest pain (principal); M79.602 Pain in left arm; R20.2 Paresthesia of skin; E66.9 Obesity, unspecified; F17.200 Nicotine dependence, unspecified, uncomplicated; Z88.5 Allergy status to narcotic agent
CPT/HCPCS: 93005; 36415; 82553; 82550; 85025; 80053; 84484; 93010; J1885; J1100; 96372; 99285